=== PATIENT | male | born 1965 | race Caucasian/White ===

== ENCOUNTER 2019-03-26 13:47 | Outpatient (CLI) | payer OTHER, SELFPAY ==
--- NOTE | 2019-03-26 14:00 | CT_ITS ---
WS: [id number] CT HEAD TECHNIQUE: Noncontrast CT of the head obtained from the skullbase to the vertex. CLINICAL INFORMATION: HYDROCEPHALUS, ACQUIRED COMPARISON: January 10, 2019 DLP: 1058.[address] scans at [facility] use at least one of these dose optimization techniques: automat ed exposure control; mA and/or kV adjustment per patient size (includes targeted exams where dose is matched to clinical indication); or iterative reconstruction. FINDINGS: Right frontal shunt catheter with tip in the right frontal horn. Ventricular size is unchanged since . No progressive hydrocephalus. No transependymal edema. Mild bowing of the third ventricle i s unchanged. No evidence of intracranial hemorrhage. No extra axial fluid collections. Normal mckeon-white differentiation. Normal posterior fossa. Mastoid air cells are well aerated. Normal visualized soft tissues. CT/CT head wo con* [id number] IMPRESSION: 1. Stable right frontal shunt catheter tip in the right frontal horn. 2. Ventricular size is unchanged from previous. No progressive hydrocephalus o r transependymal edema. 3. Normal mckeon-white differentiation. 4. No extra-axial fluid collections. 5. 6. No acute intracranial findings.
== END 2019-03-26 13:48 | disposition home or self-care (01) ==
LOC: RADWPI 13:52
PROVIDERS: Family Provider Emergency Medicine Emergency Medical Services; PCP Emergency Medicine Emergency Medical Services; Visit Provider Specialist
DX: G91.9 Hydrocephalus, unspecified (principal)
CPT/HCPCS: 70450

== ENCOUNTER 2019-04-25 12:35 | Outpatient (CLI) | payer OTHER, SELFPAY ==
--- NOTE | 2019-04-25 13:00 | CT_ITS ---
WS: [id number] CT HEAD TECHNIQUE: Noncontrast CT of the head obtained from the skullbase to the vertex. 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 FINDINGS: Right frontal shunt catheter with tip along the midline right frontal horn. No progressive hydrocepha basilia. Ventricular size is unchanged. Normal mckeon-white differentiation. No extra-axial fluid collectio ns. Mastoid air cells are well aerated. Paranasal sinuses are well aerated. CT/CT head wo con* [id number] IMPRESSION: 1. No evidence of intracranial hemorrhage or mass effect. 2. Right frontal shunt catheter tip along the midline right frontal horn. No p rogressive hydrocephalus. 3. Ventricular size is stable.
== END 2019-04-25 12:36 | disposition home or self-care (01) ==
LOC: RADWPI 12:38
PROVIDERS: Family Provider Emergency Medicine Emergency Medical Services; PCP Emergency Medicine Emergency Medical Services; Visit Provider Specialist
DX: G91.9 Hydrocephalus, unspecified (principal); Z98.2 Presence of cerebrospinal fluid drainage device
CPT/HCPCS: 70450

== ENCOUNTER 2019-09-12 08:12 | Outpatient (CLI) | payer OTHER, SELFPAY ==
--- NOTE | 2019-09-12 08:15 | CT_ITS ---
WS: [id number] CT HEAD TECHNIQUE: Noncontrast CT of the head obtained from the skullbase to the vertex. CLINICAL INFORMATION: hydrocephalus, BEATER TENDER shunt COMPARISON: CT April 25, 2019 DLP: 1058.[address] scans at use at least one of these dose optimization techniques: automat ed exposure control; mA and/or kV adjustment per patient size (includes targeted exams where dose is matched to clinical indication); or iterative reconstruction. FINDINGS: No evidence of intracranial hemorrhage or mass effect. Ventricular system and basal cisterns are malik nt. Right frontal shunt catheter tip in the right frontal horn. Moderate ventricular dilatation is un changed. No progressive hydrocephalus. No transependymal edema. Normal mckeon-white differentiation. Paranasal sinuses and mastoid air cells are well aerated. .Normal visualized soft tissues. CT/CT head wo con* [id number] IMPRESSION: 1. Right frontal shunt catheter with tip in the right frontal horn. Moderate c ompensated hydrocephalus is unchanged. No progressive ventricular dilatation. 2. No other significant changes from previous. 3. 4. No acute intracranial findings.
== END 2019-09-12 08:13 | disposition home or self-care (01) ==
LOC: RADWPI 08:56
PROVIDERS: Family Provider Emergency Medicine Emergency Medical Services; PCP Emergency Medicine Emergency Medical Services; Visit Provider Specialist
DX: G91.9 Hydrocephalus, unspecified (principal); Z98.2 Presence of cerebrospinal fluid drainage device
CPT/HCPCS: 70450

== ENCOUNTER 2020-04-01 08:07 | Outpatient (CLI) | payer OTHER, SELFPAY ==
--- NOTE | 2020-04-01 08:16 | CT_ITS ---
WS: [id number] CT HEAD NONCONTRAST HISTORY: HYDROCEPHALUS, DIZZINESS TECHNIQUE: Contiguous axial imaging performed through the brain in 2.5 mm imaging. Bone and soft tiss ue windows. All CT scans at [facility] use at least one of these dose optimization techniq ues: automated exposure control; mA and/or kV adjustment per patient size (includes targeted exams wh ere dose is matched to clinical indication); or iterative reconstruction. DLP: 1124.31 mGycm COMPARISON: 09/12/2019 RIGHT frontal shunt catheter tip ends in the midline between the frontal horns. No change in position along the catheter. There is no acute hemorrhage. Extra-axial low-attenuation collections are now present. These were not present on the prior study an d consistent with hygromas or remote subdural effusions. Ventricles: Ventricles are slitlike which represents a significant change since the prior study. Paranasal sinuses: As visualized are clear. Mastoid air cells: Well pneumatized. Calvarium and scalp: RIGHT frontal laura hole. CT/CT head wo con* [id number] IMPRESSION: 1. Significant change in the brain since the prior study of 09/12/2019. 2. RIGHT DRY KILN OPERATOR shunt catheter unchanged in position. 3. Ventricles are now slitlike. 4. New bilateral low-attenuation fluid collections around the brain. Probably subdural hygromas or remote subdural hematomas. No midline shift.
== END 2020-04-01 08:08 | disposition home or self-care (01) ==
LOC: RADWPI 08:11
PROVIDERS: PCP Emergency Medicine Emergency Medical Services; Visit Provider Surgery
DX: G91.9 Hydrocephalus, unspecified (principal); R42 Dizziness and giddiness
CPT/HCPCS: 70450

== ENCOUNTER 2021-08-03 08:11 | Day surgery (SDC) | payer OTHER, SELFPAY ==
[2021-07-30 12:30] VITALS: BMI 30.5
--- NOTE | 2021-08-03 07:37 | P.HP_ITS ---
Same Day Surgery H&P Indication for Procedure/HPI DATE OF PROCEDURE: August 03, 2021 CHIEF COMPLAINT/INDICATIONFOR SURGICAL PROCEDURE: heartburn and screening PREOP DIAGNOSIS: Heartburn and some heartburn and screening PLANNED PROCEDURE: Operation Date: 08/03/21 09:30 Proposed Procedures p EGD and colonoscopy [id number],Z12.11,R12.0(Not Applicable) - Wale Bianchi MD s Colonoscopy(Not Applicable) - Wale Bianchi MD Medications/Allergies* Home Medications Medication Instructions Recorded Confirmed Type cholecalciferol (vitamin D3) 25 25 mcg PO DAILY 06/26/21 07/30/21 History mcg (1,000 unit) capsule cyclobenzaprine 10 mg tablet 10 mg PO TID PRN 06/26/21 07/30/21 History pantoprazole 40 mg tablet,delayed 40 mg PO DAILY 06/26/21 07/30/21 History release terbinafine HCl 250 mg tablet 250 mg PO DAILY 06/26/21 07/30/21 History Allergies/Adverse Reactions Allergy/AdvReac Type Severity Reaction Status Date / Time No Known Allergies Allergy Verified 07/20/21 13:19 Pertinent History/Comorbid Conditions* Medical History (Updated 07/20/21 @ 13:38 by Wale Bianchi MD) Depression Headache Hydrocephalus Presence of programmable ventriculoperitoneal shunt Surgical History (Updated 03/27/19 @ 14:46 by Moris Hayes MD) S/P ventriculoperitoneal shunt (06/22/18) 06/22/2018; Codman-Hakim right-angle valve, Bactiseal catheter. 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
[2021-08-03 08:35] VITALS: BP 133/102; PULSE 91; RESP 18; TEMP 36.2; O2SAT 94
[2021-08-03] MEDS: sodium chloride 0.9% 1,000 ML 30 ML IV (08:42)
--- NOTE | 2021-08-03 09:02 | ANES.PREANE2 ---
Pre-Anesthetic Assessment Height/Weight: Height 1.83 m Weight 102.058 kg Temp Pulse Resp BP Pulse Ox 97.2 F L 91 18 133/102 94 08/03/21 08:35 08/03/21 08:35 08/03/21 08:35 08/03/21 08:35 08/03/21 08:35 Preop Diagnosis: hb Operation Date: 08/03/21 09:30 Proposed Procedures p EGD and colonoscopy [id number],Z12.11,R12.0(Not Applicable) - Wale Bianchi MD s Colonoscopy(Not Applicable) - Wale Bianchi MD Familial anesthetic complications: None Was Beta Nash taken within 24 hours: N/A Was Clonidine taken within 24 hours: N/A Last intake: Intake Last Liquid Date 08/02/21 Last Liquid Time 21:00 Last Solid Date 08/01/21 Last Solid Time 23:59 Social No alcohol and No tobacco former smoker Airway Mallampati: Class III Dentition: chipped and caps Pulmonary None reported CV/HEM None reported None reported Hepatic None reported GI Gastroesophageal Reflux Disease Metabolic None reported Musc/skel None reported Neuropsych DIRECTOR OF REHABILITATIVE SERVICES shunt d/t idiopathic hydroecphalus - patient does still get headaches after shunt placement Anesthetic Plan ASA status: 3 Anesthesia: MAC Risk of > 500 ml blood loss (7ml/kg in children): No Medications/Allergies Home Medications Medication Instructions Recorded Confirmed Last Taken Type cholecalciferol (vitamin D3) 25 25 mcg PO DAILY 06/26/21 07/30/21 08/02/21 History mcg (1,000 unit) capsule cyclobenzaprine 10 mg tablet 10 mg PO TID PRN 06/26/21 07/30/21 07/16/21 History pantoprazole 40 mg tablet,delayed 40 mg PO DAILY 06/26/21 07/30/21 08/02/21 History release terbinafine HCl 250 mg tablet 250 mg PO DAILY 06/26/21 07/30/21 08/02/21 History Allergies Allergy/AdvReac Type Severity Reaction Status Date / Time No Known Allergies Allergy Verified 07/20/21 13:19 Current Medications Generic Name Dose Route Start Last Admin Trade Name Freq PRN Reason Stop Dose Admin Sodium Chloride 1,000 mls @ 30 mls/hr 08/03/21 08:30 08/03/21 08:42 Sodium Chloride 0.9% IV 08/04/21 08:29 30 mls/hr .Q24H HEAVEN Administration PFSH Anesthesia Medical History Depression Headache Hydrocephalus Presence of programmable ventriculoperitoneal shunt Surgical History S/P ventriculoperitoneal shunt (06/22/18) 06/22/2018; Codman-Hakim right-angle valve, Bactiseal catheter. 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
[2021-08-03 10:38] VITALS: BP 155/84; PULSE 80; RESP 16; TEMP 36.1; O2SAT 96
--- NOTE | 2021-08-03 10:41 | ANE.PACU2 ---
Inpatient post-anesthesia follow up: Airway intact: Yes Vital signs: Temperature 97.2 F Pulse Rate 91 Respiratory Rate 18 Blood Pressure 133/102 Pulse Oximetry 94 Oxygen Delivery Me thod Room Air Oxygen Flow Rate Fraction of Inspir ed Oxygen Hydration adequate: Yes Nausea and vomiting: No Pain level: 1 Mental status: Baseline
[2021-08-03 10:43] VITALS: BP 120/94; PULSE 68; RESP 18; O2SAT 98
[2021-08-03 10:58] VITALS: BP 126/82; PULSE 79; RESP 18; O2SAT 95
[2021-08-04 12:52] LABS: H. Pylori / CLO Test Negative
== END 2021-08-03 11:22 | disposition home or self-care (01) ==
PROVIDERS: PCP Emergency Medicine Emergency Medical Services; Visit Provider Internal Medicine
PROC: 0DJ08ZZ Inspection of Upper Intestinal Tract, Via Natural or Artificial Opening Endoscopic (ICD-10-PCS; CPT 43235; principal; 2021-08-03 09:30)
PROC: 0DJD8ZZ Inspection of Lower Intestinal Tract, Via Natural or Artificial Opening Endoscopic (ICD-10-PCS; CPT 45378; 2021-08-03 09:30)
DX: Z12.11 Encounter for screening for malignant neoplasm of colon (principal); R12 Heartburn; D12.8 Benign neoplasm of rectum; K29.70 Gastritis, unspecified, without bleeding; Z87.891 Personal history of nicotine dependence
CPT/HCPCS: 43239; 45380; 87077; 88305; J2704; J7030

== ENCOUNTER 2024-08-07 12:35 | Outpatient (CLI) | payer OTHER, SELFPAY | END 2024-08-07 12:36 | disposition home or self-care (01) | LOC: SLEEP 12:36 | PROVIDERS: Referring Provider Family Medicine; Visit Provider Internal Medicine Pulmonary Disease | DX: G47.39 Other sleep apnea (principal) | CPT/HCPCS: G0399 ==

== ENCOUNTER 2024-11-07 20:07 | Outpatient (CLI) | payer OTHER, SELFPAY | END 2024-11-07 20:08 | disposition home or self-care (01) | LOC: SLEEP 20:08 | PROVIDERS: Referring Provider Nurse Practitioner Family; Visit Provider Internal Medicine Pulmonary Disease | DX: R06.83 Snoring (principal); R53.83 Other fatigue | CPT/HCPCS: 95810 ==